=== PATIENT | male | born 1990 | race Caucasian/White ===

== ENCOUNTER 2018-03-06 02:34 | Emergency (ER) | payer SELFPAY ==
[~2018-03-06] VITALS: Ht 180.3 cm; Wt 91.0 kg
[2018-03-06 06:07] VITALS: BP 119/69
== END 2018-03-06 06:30 | disposition home or self-care (01) ==
LOC: ER 03:35
DX: F10.129 Alcohol abuse with intoxication, unspecified (principal); Y90.0 Blood alcohol level of less than 20 mg/100 ml
CPT/HCPCS: 99283